=== PATIENT | male | born 1960 | race African-American/Black ===

== ENCOUNTER 2018-06-01 20:49 | Emergency (ER) | payer OTHER ==
--- OUTSIDE RECORDS SUMMARY | 2018-06-01 20:51 | XMS REPORT ---
:1960 [facility] Address [address] [place] [address] [address]. [address]. [address] [place] [address] Care Team Providers Name Role Phone DR ELIECER GARCIA Unavailable Unavailable Problems This patient has no known problems. Allergies, Adverse Reactions, Alerts This patient has no known allergies or adverse reactions. Medications This patient has no known medications. Encounters Start End Encounter Admission Attending Care Care Encounter Date/Time Date/Time Type Type Clinicians Facility Department ID 2013-06-11 2013-06-11 Outpatient C KEVIN GARCIA RAD [id number] 10:03:00 23:59:00 ELIECER
[2018-06-01] MEDS ORDERED: KETOROLAC 30 MG/ML INJ ONE (21:20)
[2018-06-01] MEDS ORDERED: MORPHINE 2 MG/ML SYR ONE (21:20)
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
[2018-06-01 22:37] LABS: Urine Blood NEGATIVE (NEG); Urine Glucose NEGATIVE (NEG); Urine Protein NEGATIVE (NEG); Urine Specific Gravity 1.015 (1.005-1.030)
== END 2018-06-01 22:46 | disposition home or self-care (01) ==
LOC: ER 20:49
DX: M54.31 Sciatica, right side (principal); I10 Essential (primary) hypertension; F17.210 Nicotine dependence, cigarettes, uncomplicated
CPT/HCPCS: 81003; 96372; 99284; J2270

== ENCOUNTER 2018-11-14 17:52 | Emergency (ER) | payer OTHER, SELFPAY ==
--- OUTSIDE RECORDS SUMMARY | 2018-11-14 17:55 | XMS REPORT ---
:1960 [facility] Address [address] [place] [address] Dr. Hurtado [address] [place] [id number] Care Team Providers Name Role Phone DR TRISTA BARRAGAN Unavailable Unavailable DR ELIECER GARCIA Unavailable Unavailable Problems This patient has no known problems. Allergies, Adverse Reactions, Alerts This patient has no known allergies or adverse reactions. Medications This patient has no known medications. Encounters Start End Encounter Admission Attending Care Care Encounter Date/Time Date/Time Type Type Clinicians Facility Department ID 2018-12-08 Inpatient KEVIN KLINE RAD [id number] 06:00:00 TRISTA 2013-06-11 2013-06-11 Outpatient KEVIN GUEVARA RAD [id number] 10:03:00 23:59:00 ELIECER
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
[2018-11-14] MEDS ORDERED: CYCLOBENZAPRINE 10 MG TAB ONE (18:50)
[2018-11-14] MEDS ORDERED: IBUPROFEN 400 MG TAB ONE (18:51)
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
--- NOTE | 2018-11-14 19:09 | RAD REPORT ---
EXAM DESCRIPTION: USEcharline Venous Uni Ltd11/14/2018 6:55 pm CLINICAL HISTORY: Right neck pain. Abnormal radiologic exam COMPARISON: CT November 14, 2018 FINDINGS: Right internal jugular vein is distended. The vein is patent. No thrombus is seen. IMPRESSION: No thrombus is visualized within the right internal jugular vein
== END 2018-11-14 20:06 | disposition home or self-care (01) ==
LOC: ER 17:52
DX: S16.1XXA Strain of muscle, fascia and tendon at neck level, initial encounter (principal); V49.9XXA Car occupant (driver) (passenger) injured in unspecified traffic accident, initial encounter; I10 Essential (primary) hypertension
CPT/HCPCS: 70450; 72125; 93971; 99285